=== PATIENT | male | born 1980 | race Caucasian/White ===

== ENCOUNTER → 2019-06-20 | Outpatient (CLI) | payer BC, OTHER | LOC: CAT 13:09 | DX: R51 Headache (principal); R42 Dizziness and giddiness ==

== ENCOUNTER → 2019-11-25 | Outpatient (CLI) | payer BC, OTHER ==
[~2019-11-25] VITALS: Ht 190.5 cm; Wt 131.9 kg
[~2019-11-25] MED LIST: IMITREX100 MG PO; NABUMETONE 500500 M1 PO; NEURONTIN300 MG PO; TOPIRAMATE ER50 MG PO
--- NOTE | ~2019-11-25 | HPC ---
[facility] [place] [address] PAIN MANAGEMENT CONSULTATION Name: MICHAEL CALVERT Room #: REG SHARMILA ..#: [id number] Admission: 11/25/19 Attend Phys: Luca Luna DO Discharge: Date of : 76 Report #: [id number] CC: Luca Henderson DATE OF SERVICE: 11/25/2019 REFERRING PHYSICIAN: Luca Arevalo DO CHIEF COMPLAINT: Axial back pain. HISTORY OF PRESENT ILLNESS: As you know, the patient is a 39-year-old male who reports acute onset of low back pain that began on 08/2019. He denies injury or trauma that may have led to symptom development. He states he has trialled [id number] medications, rest and relaxation without significant benefit. He has had previous back pain in the past year, treated for an episode. Each improved with conservative treatment. Unfortunately, his symptoms did not improve with those treatments on this episode. He sought further evaluation through his PCP, Dr. Arevalo and his nurse practitioner, José Luis Castaneda who sent the patient for imaging. There were minor changes noted on the imaging study. The patient was then referred to our clinic to discuss interventional treatments. The patient indicates today his pain is periodic, intermittent, brief and momentary. Describes the pain as aching, throbbing, sharp, stabbing and tender. He places current pain score 6/10, daily average of 7/10, worst pain has been as 7/10. The patient is indicating no specific incident that exacerbate symptoms nor has he found anything to improve pain. He is referred to our clinic to discuss the minor changes noted on his MRI. PAST MEDICAL HISTORY: Migraine headaches. PAST SURGICAL HISTORY: 1. Tonsillectomy. 2. Closed reduction of ankle dislocation. 3. Rotator cuff repair. SOCIAL HISTORY: The patient denies tobacco, IV or illicit drug use. Admits to an occasional alcohol beverage. 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 He is working, not receiving workmen's compensation nor is he trying to obtain discrete benefits. He is not in litigation in regards to pain, unaccompanied at today's visit. REVIEW OF SYSTEMS: Positive for fatigue and weakness, frequent and recurrent migraine headaches, wearing corrective eyewear, hearing loss with tinnitus, palpitations, frequent diarrhea, nocturia, intermittent low back pain. All other review of systems negative per 12-point review of systems other than those listed in history of present illness. Pain impact score 46 of 70 indicating moderate to severe interference of daily activities secondary to pain. ALLERGIES: DEMEROL. CURRENT MEDICATIONS: Topiramate 50 mg b.i.d., sumatriptan 100 mg p.r.n. IMAGING: MRI of the lumbar spine obtained 10/24/2019 shows T12-L1 unremarkable, L1-L2 unremarkable, L2-L3 unremarkable, L3-L4 shows mild circumferential disk bulge, small anterior disk protrusion. There is no significant central canal stenosis, mild effacement of the ventral surface of the left neural foramen causing mild left L3 nerve root, effacement. No complete compression of the nerve root. Facets are unremarkable. L4-L5 shows disk space narrowing, broad-based central left paracentral disk protrusion causing effacement of the ventral thecal sac, AP diameter of the canal measures 12 mm only mild changes, mild bilateral neural foraminal narrowing. Mild effacement of the underside of the exiting L4 nerve roots. L5-S1 is unremarkable. PHYSICAL EXAMINATION: VITAL SIGNS: Blood pressure 126/86, pulse 75, respiratory rate 14 and unlabored. The patient is 99% on room air, height 6 feet 3 inches tall, weight 290 pounds, BMI calculated 36.6. GENERAL: Well-developed, well-nourished, well-hydrated exogenously obese 39-year-old male appearing stated age, pain is rated anywhere from 6-7/10. HEENT: Normocephalic, atraumatic. Pupils equal, round and reactive. Extraocular muscles are intact. NEUROLOGIC: Speech fluent. The patient deemed a good historian. LUNGS: Clear, no wheeze, rhonchi or rales. CARDIOVASCULAR: Regular. No appreciable gallop, no rub. ABDOMEN: Soft, obese, normoactive bowel sounds. EXTREMITIES: Show no clubbing, no cyanosis, no edema. MUSCULOSKELETAL: Lower extremity strength is symmetrical 5/5, intact to light touch from L1 through S2 dermatomes. Seated straight leg raising negative. Supine straight leg raising is equivocal on the left, negative right. Ankle clonus negative. Babinski is negative. Gait appears normal. Stance normal. ASSESSMENT: 1. Possible lumbar radiculopathy. 2. Displacement of lumbar intervertebral disk with radiculopathy. 3. Lumbosacral spondylosis with radiculopathy. 4. Intermittent low back pain. PLAN: 1. Based on today's physical exam and history the patient has provided, the description the patient uses in regards to pain, it would appear he is suffering from a lumbar radiculopathy. He reports mainly axial back pain. There does not appear to be any radiation of symptoms at this time. It was reported that he was experiencing left lower extremity symptoms prior, which would correlate with the lumbar radiculopathy, though he is not experiencing no symptoms today, nor was I able to elicit them in physical examination. He does have some minor changes in the lumbar spine on the left at the L3-L4 and L4-L5 level, which would likely cause some left lower extremity symptoms. We discussed with the patient the findings of his MRI over 22 minutes of time reviewing that MRI and showing both digital imaging as well as mottling to described the findings of the MRI and how they could correlate to his previous symptoms. After this long discussion of the imaging study, we then discussed treatment options. Following was discussed with the patient today. We discussed physical therapy, stretching exercises and core strengthening as a treatment option along with concerted effort at weight loss. We discussed medication management utilizing neuropathic pain medications in conjunction with nonsteroidal anti-inflammatory. We discussed lumbar epidural injections under fluoroscopic guidance for which the patient was referred to our clinic. We also discussed surgical options with the patient today. After reviewing the risks and benefits of all proposed treatment options, the patient chose to make adjustments in medication management. 2. The patient will be started on nabumetone 500 mg dose 1 tab p.o. t.i.d. with meals. I have given the patient #90 tablets. He is to watch for side effects of dyspepsia, worsening of blood pressure, lower extremity edema. If he notes any side effects, discontinue immediately. If he notes no side effects, but improvement in symptoms continue the use of the medication. I have given this prescription #90 tablets with 2 refills. 3. The patient will be started on gabapentin 300 mg tablets. We will start at 1 tab p.o. at bedtime and began escalating the dose every 3 nights to reach 900 mg 3 times a day if necessary. The patient was advised anytime during the titration of the therapy, he notes improvement in symptoms, stabilize at that dose, no further escalation. No improvement in symptoms, no side effects of sleepiness, disorientation, confusion, mental slowing, continue the titration as directed. The patient was given a written titration of the medication to follow. If he has questions or concerns, contact our clinic. Prescription was provided to the patient with 2 refills, assuming good efficacy. Continue the therapy. 4. We plan to see the patient back in follow-up visit in approximately one month. At that time, we will review the efficacy of the medication adjustments made today and determine if any other treatment options need to be addressed. We will then discuss also whether or not an epidural injection would be necessary, though we both felt that it would be most important trial conservative treatment initially. 5. We wish to thank Dr. Arevalo and his nurse practitioner, José Luis Castaneda for the opportunity to see the patient in consultation. We will keep you apprised of his response to treatment as we address axial back pain and history of lumbar radiculopathy involving the left lower extremity. Again, we wish to thank you for the opportunity to see the patient in consultation. By: [id number] Luca Luna DO /nt
[2019-11-25 13:30] VITALS: BP 126/86
--- NOTE | 2019-11-25 13:53 | NUR ---
Pain Clinic Assessment: 1. History of Osteoarthritis: Not Applicable History of Rheumatoid Arthritis: Not Applicable 2. Height: 6 ft. 3 in. 190.5 cm. Weight: 290.0 lb. 12 oz. 131.884 kg. Patient's BMI: 36.3 3. Vital Signs: BP: 126/86 Pulse: 75 Resp: 14 Temp: 02 Sat: 99 ECG Mon: 4. Pain Intensity: 6-7 5. Fall Risk: Dizziness: N Needs help standing or walking: N Fallen in the last 3 months: N Fall risk comments: 6. Patient on Blood Thinner: None 7. History of Hypertension: N 8. Opioid Therapy greater than 6 weeks: N Opiate Contract Signed: 9. Risk Assessment Tool Provided: 4-MOD 10. Functional Assessment Tool: 11. Recreational Drug Use: Never Drug Type: Tobacco Use: Never Smoker Tobacco Type: Amount or Packs/day: How Many Years: Alcohol Use: Yes Frequency: Monthly Quant:
== END ==
LOC: PAIN 06:50
PROVIDERS: ATTEND Anesthesiology Pain Medicine
DX: M51.16 Intervertebral disc disorders with radiculopathy, lumbar region (principal); M47.27 Other spondylosis with radiculopathy, lumbosacral region; Z88.8 Allergy status to other drugs, medicaments and biological substances; Z79.899 Other long term (current) drug therapy